=== PATIENT | female | born 1960 | race African-American/Black ===

== ENCOUNTER 2024-08-07 06:39 | Emergency (ER) | payer SELFPAY ==
[~2024-08-07] VITALS: Ht 165.1 cm; Wt 79.0 kg
[2024-08-07 07:04] VITALS: BP 141/82; O2SAT 100
[2024-08-07] MEDS: IBUPROFEN 600MG TABLET PO ONE (08:30)
[2024-08-07 09:17] VITALS: PULSE 70; RESP 18; TEMP 36.55848; O2SAT 100
== END 2024-08-07 09:20 | disposition home or self-care (01) ==
LOC: ER 06:52
DX: S20.219A Contusion of unspecified front wall of thorax, initial encounter (principal); M54.2 Cervicalgia; M25.561 Pain in right knee; I10 Essential (primary) hypertension; V49.59XA Passenger injured in collision with other motor vehicles in traffic accident, initial encounter; Y93.89 Activity, other specified; Y92.89 Other specified places as the place of occurrence of the external cause; Y99.8 Other external cause status
CPT/HCPCS: 71045; 73562; 99284